=== PATIENT | female | born 1970 | race Caucasian/White ===

== ENCOUNTER 2023-02-15 21:40 | Inpatient (IN) ==
[2023-02-15] MEDS ORDERED: ONDANSETRON INJ 2 MG/ML 2 ML VIAL IV STA (21:54)
[2023-02-15] MEDS ORDERED: SODIUM CHLORIDE 0.9% 1000ML 500 ML IV SCH (22:00)
[2023-02-15] MEDS ORDERED: SODIUM CHLORIDE 0.9% 1000ML 1,000 ML IV SCH (22:00)
--- NOTE | 2023-02-15 22:19 | Emergency Department Note ---
History of Present Illness General Chief complaint: Hyperglycemia Stated complaint: VOMIT,HIGH BLOOD SUGAR,UNABLE TO EAT ANYTHING Time Seen by Provider: 02/15/23 21:45 History of Present Illness This 52-year-old female with type 1 diabetes and frontal lobe dementia presents to the ER with for high blood sugars has been vomiting all day. Patient is here visiting her son who is here for [employer]. They live in [place]. No history of DKA per patient or . states has been more confused today. Patient has been vomiting all day. Family denies chest pain, abdominal pain, diarrhea, urinary symptoms. Home Medications Medication Instructions Recorded Confirmed Type insulin lispro 100 unit/mL 0 sliding scale dose continuous 02/15/23 02/15/23 History subcutaneous solution (Humalog subcutaneous infusion DIRECTED U-100 Insulin) Allergies Allergy/AdvReac Type Severity Reaction Status Date / Time codeine Allergy Unknown Verified 02/15/23 23:39 Past Med/Surg History Medical History (Updated 02/16/23 @ 00:37 by SWETHA Howell) Diabetes mellitus type 1 Frontotemporal dementia Graves disease IUD (intrauterine device) in place Meningioma Tremor Surgical History (Updated 02/16/23 @ 00:28 by SWETHA Howell) History of cholecystectomy Social History Smoking Status: Never smoker Second Hand Exposure: No; Do You Dip or Chew Tobacco: No; Tobacco Cessation Education Requested by Patient: No Hx Alcohol Use: Yes Alcohol type: wine Hx Substance Use: No Preferred Language: Australian Communication Ability: Impaired Communication Ability Comment: hx frontal lobe dimentia Assistant Corporate Controller Required: No Beliefs That Will Affect Care: None Current Living Situation: Spouse Other Information That Helps Us Care for You: No Feels Safe at Home: Yes Safety Concerns: Feels Safe At This Time Assistive Devices: None Review of Systems A total of 10 systems reviewed and were otherwise negative Physical Exam Vital Signs Vital Signs - 24 hr 02/15/23 21:44 02/15/23 22:07 02/15/23 22:17 Temperature 36.6 C Temperature Source Temporal Artery Scan Pulse Rate 79 114 H 58 L Pulse Rate from SpO2 Sensor 115 H Pulse Rhythm Regular Respiratory Rate 18 17 17 Blood Pressure 110/71 Blood Pressure Mean 84 Pulse Oximetry 99 99 100 Oxygen Delivery Method Room Air Room Air Sepsis Recent Fever Within 48 Hours No Sepsis New/Unexplained Change in Mental Status No Sepsis Action Taken by Nursing No Action Required 02/15/23 22:23 02/15/23 22:20 02/15/23 22:30 Temperature Temperature Source Pulse Rate 114 H 117 H Pulse Rate from SpO2 Sensor Pulse Rhythm Respiratory Rate 13 Blood Pressure 135/72 Blood Pressure Mean 93 Pulse Oximetry Oxygen Delivery Method Sepsis Recent Fever Within 48 Hours Sepsis New/Unexplained Change in Mental Status Sepsis Action Taken by Nursing 02/15/23 22:30 02/15/23 22:40 02/15/23 22:50 Temperature Temperature Source Pulse Rate 116 H 121 H 118 H Pulse Rate from SpO2 Sensor Pulse Rhythm Respiratory Rate 19 18 22 Blood Pressure Blood Pressure Mean Pulse Oximetry Oxygen Delivery Method Sepsis Recent Fever Within 48 Hours Sepsis New/Unexplained Change in Mental Status Sepsis Action Taken by Nursing 02/15/23 23:00 02/15/23 23:17 02/15/23 23:20 Temperature Temperature Source Pulse Rate 124 H 121 H 124 H Pulse Rate from SpO2 Sensor Pulse Rhythm Respiratory Rate 18 22 21 Blood Pressure Blood Pressure Mean Pulse Oximetry Oxygen Delivery Method Sepsis Recent Fever Within 48 Hours Sepsis New/Unexplained Change in Mental Status Sepsis Action Taken by Nursing 02/15/23 23:30 02/15/23 23:30 Temperature Temperature Source Pulse Rate 126 H Pulse Rate from SpO2 Sensor 126 H Pulse Rhythm Respiratory Rate 20 Blood Pressure 131/71 Blood Pressure Mean 91 Pulse Oximetry 100 Oxygen Delivery Method Sepsis Recent Fever Within 48 Hours Sepsis New/Unexplained Change in Mental Status Sepsis Action Taken by Nursing VITALS: Vitals are noted on the nurse's note and reviewed by myself. Vital signs tachycardic. GENERAL: Pleasant female mildly confused with present to help give history, SKIN: The skin was without rashes, erythema, edema, or bruising. There is no tenting of the skin. Capillary reflex less than 2 seconds. HEAD: Normocephalic atraumatic. EARS: External auditory canals clear, tympanic membranes pearly tavarez without erythema or effusion bilaterally. EYES: Pupils equal round and reactive to light and accommodation. Conjunctivae without injection, sclerae without icterus. Extraocular movements intact. NOSE: Patent, turbinates without inflammation or discharge. No sinus tenderness. MOUTH: Mucous membranes dry. Pharynx without erythema or exudate. Uvula midline. Airway patent. Tongue does not deviate. NECK: Supple without nuchal rigidity. No lymphadenopathy. No thyromegaly. Cervical spine is nontender. No JVD. HEART: Mildly tachycardic rate and rhythm LUNGS: Clear to auscultation bilaterally without wheezes, rales or rhonchi. No retractions or accessory muscle use. ABDOMEN: Positive bowel sounds x 4. Normal tympanic percussion. Soft, nontender, without masses or organomegaly. Mtz sign negative. No guarding or rebound tenderness. No CVA tenderness MUSCULOSKELETAL: No muscle atrophy, erythema, or edema noted. NEURO: Patient was alert and oriented to person place. Normal sensation to light and sharp touch. No focal neurological deficits. Course Administered Medications Insulin Human Regular 250 (units/ Sodium Chloride) 250 mls @ 5.6 mls/hr IV .Q24H MILAD; Protocol Stop: 03/17/23 22:59 Last Titration: 02/16/23 02:25 Dose: 8 units/hr, 8 mls/hr Documented By: AMB Co-signed By: TG Titration: 02/16/23 01:42 Dose: 6.7 units/hr, 6.7 mls/hr Documented By: AMB Co-signed By: TP Titration: 02/16/23 00:22 Dose: 5.6 units/hr, 5.6 mls/hr Documented By: ANGELIA Co-signed By: BRIAN Admin: 02/15/23 23:25 Dose: 4.7 units/hr, 4.7 mls/hr Documented By: DLH Co-signed By: MED Parenteral Electrolytes (Normosol-R) 1,000 mls @ 115 mls/hr IV .Q8H42M MILAD Stop: 03/18/23 00:51 Last Admin: 02/16/23 01:45 Dose: 115 mls/hr Documented By: AMB Ceftriaxone Sodium 1,000 mg/ (Dextrose) 50 mls @ 100 mls/hr IV Q24H MILAD; Protocol Stop: 02/18/23 01:59 Last Admin: 02/16/23 02:43 Dose: 100 mls/hr Documented By: AMB Discontinued Medications Sodium Chloride (Nss 1000ml) 1,000 mls @ 999 mls/hr IV .Q1H1M MILAD Stop: 02/15/23 23:00 Last Infusion: 02/15/23 23:11 Dose: 0 mls/hr Documented By: Admin: 02/15/23 22:10 Dose: 999 mls/hr Documented By: ANGELIA Sodium Chloride (Nss 1000ml) 500 mls @ 999 mls/hr IV .Q31M MILAD Stop: 02/15/23 22:30 Last Infusion: 02/15/23 22:50 Dose: 0 mls/hr Documented By: Admin: 02/15/23 22:17 Dose: 999 mls/hr Documented By: ANGELIA Sodium Chloride (Nss 1000ml) 1,000 mls @ 999 mls/hr IV .Q1H1M ONE Stop: 02/15/23 23:37 Last Infusion: 02/16/23 00:10 Dose: 0 mls/hr Documented By: Admin: 02/15/23 23:07 Dose: 999 mls/hr Documented By: ANGELIA Piperacillin Sod/Tazobactam Sod (Zosyn) 4.5 gm in 120 mls @ 200 mls/hr IV NOW STA Stop: 02/15/23 23:08 Last Infusion: 02/15/23 23:39 Dose: 0 mls/hr Documented By: Admin: 02/15/23 23:01 Dose: 200 mls/hr Documented By: ANGELIA Parenteral Electrolytes (Normosol-R) 1,000 mls @ 75 mls/hr IV .[id number] MILAD Stop: 03/17/23 22:59 Last Admin: 02/16/23 00:21 Dose: 75 mls/hr Documented By: ANGELIA Insulin Human Regular (Novolin-R Insulin Per Unit Charge) 10 units IV NOW STA Stop: 02/15/23 22:57 Last Admin: 02/15/23 23:24 Dose: 10 units Documented By: ANGELIA Co-signed By: MED Ioversol (Optiray 350 100ml) 85 ml IV ONCE ONE Stop: 02/15/23 23:10 Last Admin: 02/15/23 23:11 Dose: 81 ml Documented By: RACHEL Misnleaneous (Stat Iv Infusion Titration Per Protocol) 1 each N/A NOW STA Stop: 02/15/23 22:57 Last Admin: 02/15/23 23:33 Dose: Not Given Documented By: ANGELIA Ondansetron HCl (Ondansetron Inj 2 Mg/Ml 2 Ml Vial) 4 mg IV NOW STA Stop: 02/15/23 21:55 Last Admin: 02/15/23 22:10 Dose: 4 mg Documented By: ANGELIA Critical Care Time Critical Care Time: Yes Total Critical Care Time: 65 I have personally spent 65 minutes of critical care time in the direct management of this patient. This includes bedside care, interpretation of diagnostic studies, and testing, discussion with consultants, patient, and family members, and other required patient management activities. This 65 minutes is in excess of all separately billable procedures. Medical Decision Making Medical Records Attestation: I reviewed the patient's medical records. Home Medications Current Medication List: was personally reviewed by me Laboratory Data Attestation: I reviewed the patient's lab results. 02/15/23 22:00 02/15/23 22:00 Lab Results 02/15/23 02/15/23 02/15/23 Range/Units 22:00 22:00 22:00 WBC 24.45 H (4.8-10.8) K/ul RBC 5.36 (4.20-5.40) M/uL Hgb 15.7 (12.0-16.0) g/dl POC Hgb (12.0-16.0) g/dl Hct 47.5 H (37.0-47.0) % POC Hct (37-47) % MCV 88.6 (80.0-100.0) fL MCH 29.3 (25.0-34.0) pg MCHC 33.1 (32.0-36.0) g/dL RDW Std Deviation 39.8 (36.4-46.3) fL RDW Coeff of Janine 12.3 (11.5-14.5) % Plt Count 527 H (130-400) K/uL MPV 10.2 (9.4-12.4) fL Immature Gran % (Auto) 1.2 % Neut % (Auto) 82.4 % Lymph % (Auto) 9.3 % [place] % (Auto) 6.6 % Eos % (Auto) 0.1 % Baso % (Auto) 0.4 % Neut # (Auto) 20.16 H (1.40-6.50) K/uL Lymph # (Auto) 2.27 (1.2-3.4) K/uL [place] # (Auto) 1.62 H (0.11-0.59) K/uL Eos # (Auto) 0.02 (0-0.50) K/uL Baso # (Auto) 0.09 (0-0.2) K/uL Immature Gran # (Auto) 0.29 H (0.01-0.20) K/uL Echinocytes 1+ PT (9.0-12.0) Seconds INR (0.9-1.1) APTT (21.0-31.0) Seconds PTT Ratio VBG pH (7.36-7.41) VBG pCO2 (38-50) mmHg VBG pO2 mmHg VBG HCO3 mmol/L VBG O2 Saturation % VBG Base Excess mEq/L POC Sodium (135-144) mmol/L Sodium 132 L (136-145) mmol/L POC Potassium (3.3-5.0) mmol/L Potassium 6.0 H (3.5-5.1) mmol/L POC Chloride (101-112) mmol/L Chloride 95 L (98-107) mmol/L Carbon Dioxide 10 L (21-32) mmol/L POC Total CO2 (24-31) mmol/L Anion Gap 27 H (3-11) POC Anion Gap (16-25) mmol/L POC BUN (7-18) mg/dl BUN 35 H (6-23) mg/dl Creatinine 1.45 H (0.6-1.2) mg/dl POC Creatinine (0.6-1.3) mg/dl Est Cr Clr Drug Dosing 33.6 ml/min Est GFR ( Amer) 47.9 ml/min Est GFR (Non-Af Amer) 41.3 ml/min BUN/Creatinine Ratio 24.1 H (10-20) Glucose 664 H* (70-99(Fasting)) mg/dl POC Glucose (other) (70-99) mg/dl Lactate 8.0 H* (0.4-2.0) mmol/L Calcium 10.5 H (8.6-10.3) mg/dl POC Ioniz Calcium Carlos (1.12-1.32) mmol/l Magnesium 2.6 H (1.7-2.4) mg/dl Total Bilirubin 0.7 (0.2-1.0) mg/dl Direct Bilirubin 0.2 (0-0.2) mg/dl AST 22 (13-39) U/L ALT 29 (7-52) U/L Alkaline Phosphatase 85 (34-104) U/L Troponin I High Sens 10.9 (0-14) pg/ml Total Protein 8.6 H (6.0-8.3) gm/dl Albumin 5.3 H (3.4-5.0) gm/dl Lipase 1147 H (11-82) U/L Procalcitonin (0-0.5) ng/ml TSH (0.300-4.500) uIu/ml HCG, Qual (Negative) Urine Color Urine Appearance (Clear) Urine pH (4.5-7.5) Ur Specific [place] (1.000-1.030) Urine Protein (Negative) Urine Glucose (UA) (Negative) Urine Ketones (Negative) Urine Blood (Negative) Urine Nitrite (Negative) Urine Bilirubin (Negative) Urine Urobilinogen (Negative) Ur Leukocyte Esterase (Negative) Urine WBC (Auto) (0-5) /hpf Urine RBC (Auto) (0-4) /hpf U Hyaline Cast (Auto) (0-5) /lpf U Epithel Cells (Auto) (0-5) /lpf Urine Bacteria (Auto) (Negative) Adenovirus (PCR) (NotDetected) B. pertussis DNA (PCR) (NotDetected) B.parapertussis DNA PCR (NotDetected) C. pneumoniae DNA (PCR) (NotDetected) Coronavirus OC43 (PCR) (NotDetected) Coronavirus HKU1 (PCR) (NotDetected) Coronavirus 229E (PCR) (NotDetected) SARS-CoV-2 (PCR) (NotDetected) Coronavirus NL63 (PCR) (NotDetected) Human Metapneumovir PCR (NotDetected) Influenza Type A (PCR) (NotDetected) Influenza Type B (PCR) (NotDetected) M. pneumoniae (PCR) (NotDetected) Parainfluenza 1 (PCR) (NotDetected) Parainfluenza 2 (PCR) (NotDetected) Parainfluenza 3 (PCR) (NotDetected) Parainfluenza 4 (PCR) (NotDetected) RSV (PCR) (NotDetected) Entero/Rhino (PCR) (NotDetected) 02/15/23 02/15/23 02/15/23 Range/Units 22:00 22:00 22:01 WBC (4.8-10.8) K/ul RBC (4.20-5.40) M/uL Hgb (12.0-16.0) g/dl POC Hgb (12.0-16.0) g/dl Hct (37.0-47.0) % POC Hct (37-47) % MCV (80.0-100.0) fL MCH (25.0-34.0) pg MCHC (32.0-36.0) g/dL RDW Std Deviation (36.4-46.3) fL RDW Coeff of Janine (11.5-14.5) % Plt Count (130-400) K/uL MPV (9.4-12.4) fL Immature Gran % (Auto) % Neut % (Auto) % Lymph % (Auto) % [place] % (Auto) % Eos % (Auto) % Baso % (Auto) % Neut # (Auto) (1.40-6.50) K/uL Lymph # (Auto) (1.2-3.4) K/uL [place] # (Auto) (0.11-0.59) K/uL Eos # (Auto) (0-0.50) K/uL Baso # (Auto) (0-0.2) K/uL Immature Gran # (Auto) (0.01-0.20) K/uL Echinocytes PT 11.0 (9.0-12.0) Seconds INR 1.0 (0.9-1.1) APTT 23.6 (21.0-31.0) Seconds PTT Ratio 0.9 VBG pH (7.36-7.41) VBG pCO2 (38-50) mmHg VBG pO2 mmHg VBG HCO3 mmol/L VBG O2 Saturation % VBG Base Excess mEq/L POC Sodium (135-144) mmol/L Sodium (136-145) mmol/L POC Potassium (3.3-5.0) mmol/L Potassium (3.5-5.1) mmol/L POC Chloride (101-112) mmol/L Chloride (98-107) mmol/L Carbon Dioxide (21-32) mmol/L POC Total CO2 (24-31) mmol/L Anion Gap (3-11) POC Anion Gap (16-25) mmol/L POC BUN (7-18) mg/dl BUN (6-23) mg/dl Creatinine (0.6-1.2) mg/dl POC Creatinine (0.6-1.3) mg/dl Est Cr Clr Drug Dosing ml/min Est GFR ( Amer) ml/min Est GFR (Non-Af Amer) ml/min BUN/Creatinine Ratio (10-20) Glucose (70-99(Fasting)) mg/dl POC Glucose (other) (70-99) mg/dl Lactate (0.4-2.0) mmol/L Calcium (8.6-10.3) mg/dl POC Ioniz Calcium Carlos (1.12-1.32) mmol/l Magnesium (1.7-2.4) mg/dl Total Bilirubin (0.2-1.0) mg/dl Direct Bilirubin (0-0.2) mg/dl AST (13-39) U/L ALT (7-52) U/L Alkaline Phosphatase (34-104) U/L Troponin I High Sens (0-14) pg/ml Total Protein (6.0-8.3) gm/dl Albumin (3.4-5.0) gm/dl Lipase (11-82) U/L Procalcitonin 0.98 H (0-0.5) ng/ml TSH 0.573 (0.300-4.500) uIu/ml HCG, Qual (Negative) Urine Color Urine Appearance (Clear) Urine pH (4.5-7.5) Ur Specific [place] (1.000-1.030) Urine Protein (Negative) Urine Glucose (UA) (Negative) Urine Ketones (Negative) Urine Blood (Negative) Urine Nitrite (Negative) Urine Bilirubin (Negative) Urine Urobilinogen (Negative) Ur Leukocyte Esterase (Negative) Urine WBC (Auto) (0-5) /hpf Urine RBC (Auto) (0-4) /hpf U Hyaline Cast (Auto) (0-5) /lpf U Epithel Cells (Auto) (0-5) /lpf Urine Bacteria (Auto) (Negative) Adenovirus (PCR) (NotDetected) B. pertussis DNA (PCR) (NotDetected) B.parapertussis DNA PCR (NotDetected) C. pneumoniae DNA (PCR) (NotDetected) Coronavirus OC43 (PCR) (NotDetected) Coronavirus HKU1 (PCR) (NotDetected) Coronavirus 229E (PCR) (NotDetected) SARS-CoV-2 (PCR) (NotDetected) Coronavirus NL63 (PCR) (NotDetected) Human Metapneumovir PCR (NotDetected) Influenza Type A (PCR) (NotDetected) Influenza Type B (PCR) (NotDetected) M. pneumoniae (PCR) (NotDetected) Parainfluenza 1 (PCR) (NotDetected) Parainfluenza 2 (PCR) (NotDetected) Parainfluenza 3 (PCR) (NotDetected) Parainfluenza 4 (PCR) (NotDetected) RSV (PCR) (NotDetected) Entero/Rhino (PCR) (NotDetected) 02/15/23 02/15/23 02/15/23 Range/Units 22:01 22:13 22:44 WBC (4.8-10.8) K/ul RBC (4.20-5.40) M/uL Hgb (12.0-16.0) g/dl POC Hgb (12.0-16.0) g/dl Hct (37.0-47.0) % POC Hct (37-47) % MCV (80.0-100.0) fL MCH (25.0-34.0) pg MCHC (32.0-36.0) g/dL RDW Std Deviation (36.4-46.3) fL RDW Coeff of Janine (11.5-14.5) % Plt Count (130-400) K/uL MPV (9.4-12.4) fL Immature Gran % (Auto) % Neut % (Auto) % Lymph % (Auto) % [place] % (Auto) % Eos % (Auto) % Baso % (Auto) % Neut # (Auto) (1.40-6.50) K/uL Lymph # (Auto) (1.2-3.4) K/uL [place] # (Auto) (0.11-0.59) K/uL Eos # (Auto) (0-0.50) K/uL Baso # (Auto) (0-0.2) K/uL Immature Gran # (Auto) (0.01-0.20) K/uL Echinocytes PT (9.0-12.0) Seconds INR (0.9-1.1) APTT (21.0-31.0) Seconds PTT Ratio VBG pH 7.03 L (7.36-7.41) VBG pCO2 36 L (38-50) mmHg VBG pO2 49 mmHg VBG HCO3 10 mmol/L VBG O2 Saturation 78.8 % VBG Base Excess -20.5 mEq/L POC Sodium (135-144) mmol/L Sodium (136-145) mmol/L POC Potassium (3.3-5.0) mmol/L Potassium (3.5-5.1) mmol/L POC Chloride (101-112) mmol/L Chloride (98-107) mmol/L Carbon Dioxide (21-32) mmol/L POC Total CO2 (24-31) mmol/L Anion Gap (3-11) POC Anion Gap (16-25) mmol/L POC BUN (7-18) mg/dl BUN (6-23) mg/dl Creatinine (0.6-1.2) mg/dl POC Creatinine (0.6-1.3) mg/dl Est Cr Clr Drug Dosing ml/min Est GFR ( Amer) ml/min Est GFR (Non-Af Amer) ml/min BUN/Creatinine Ratio (10-20) Glucose (70-99(Fasting)) mg/dl POC Glucose (other) (70-99) mg/dl Lactate (0.4-2.0) mmol/L Calcium (8.6-10.3) mg/dl POC Ioniz Calcium Carlos (1.12-1.32) mmol/l Magnesium (1.7-2.4) mg/dl Total Bilirubin (0.2-1.0) mg/dl Direct Bilirubin (0-0.2) mg/dl AST (13-39) U/L ALT (7-52) U/L Alkaline Phosphatase (34-104) U/L Troponin I High Sens (0-14) pg/ml Total Protein (6.0-8.3) gm/dl Albumin (3.4-5.0) gm/dl Lipase (11-82) U/L Procalcitonin (0-0.5) ng/ml TSH (0.300-4.500) uIu/ml HCG, Qual Negative (Negative) Urine Color Urine Appearance (Clear) Urine pH (4.5-7.5) Ur Specific [place] (1.000-1.030) Urine Protein (Negative) Urine Glucose (UA) (Negative) Urine Ketones (Negative) Urine Blood (Negative) Urine Nitrite (Negative) Urine Bilirubin (Negative) Urine Urobilinogen (Negative) Ur Leukocyte Esterase (Negative) Urine WBC (Auto) (0-5) /hpf Urine RBC (Auto) (0-4) /hpf U Hyaline Cast (Auto) (0-5) /lpf U Epithel Cells (Auto) (0-5) /lpf Urine Bacteria (Auto) (Negative) Adenovirus (PCR) Not Detected (NotDetected) B. pertussis DNA (PCR) Not Detected (NotDetected) B.parapertussis DNA PCR Not Detected (NotDetected) C. pneumoniae DNA (PCR) Not Detected (NotDetected) Coronavirus OC43 (PCR) Not Detected (NotDetected) Coronavirus HKU1 (PCR) Not Detected (NotDetected) Coronavirus 229E (PCR) Not Detected (NotDetected) SARS-CoV-2 (PCR) Not Detected (NotDetected) Coronavirus NL63 (PCR) Not Detected (NotDetected) Human Metapneumovir PCR Not Detected (NotDetected) Influenza Type A (PCR) Not Detected (NotDetected) Influenza Type B (PCR) Not Detected (NotDetected) M. pneumoniae (PCR) Not Detected (NotDetected) Parainfluenza 1 (PCR) Not Detected (NotDetected) Parainfluenza 2 (PCR) Not Detected (NotDetected) Parainfluenza 3 (PCR) Not Detected (NotDetected) Parainfluenza 4 (PCR) Not Detected (NotDetected) RSV (PCR) Not Detected (NotDetected) Entero/Rhino (PCR) Not Detected (NotDetected) 02/15/23 02/15/23 Range/Units 22:49 23:03 WBC (4.8-10.8) K/ul RBC (4.20-5.40) M/uL Hgb (12.0-16.0) g/dl POC Hgb 16.0 (12.0-16.0) g/dl Hct (37.0-47.0) % POC Hct 47 (37-47) % MCV (80.0-100.0) fL MCH (25.0-34.0) pg MCHC (32.0-36.0) g/dL RDW Std Deviation (36.4-46.3) fL RDW Coeff of Janine (11.5-14.5) % Plt Count (130-400) K/uL MPV (9.4-12.4) fL Immature Gran % (Auto) % Neut % (Auto) % Lymph % (Auto) % [place] % (Auto) % Eos % (Auto) % Baso % (Auto) % Neut # (Auto) (1.40-6.50) K/uL Lymph # (Auto) (1.2-3.4) K/uL [place] # (Auto) (0.11-0.59) K/uL Eos # (Auto) (0-0.50) K/uL Baso # (Auto) (0-0.2) K/uL Immature Gran # (Auto) (0.01-0.20) K/uL Echinocytes PT (9.0-12.0) Seconds INR (0.9-1.1) APTT (21.0-31.0) Seconds PTT Ratio VBG pH (7.36-7.41) VBG pCO2 (38-50) mmHg VBG pO2 mmHg VBG HCO3 mmol/L VBG O2 Saturation % VBG Base Excess mEq/L POC Sodium 134 L (135-144) mmol/L Sodium (136-145) mmol/L POC Potassium 6.0 H (3.3-5.0) mmol/L Potassium (3.5-5.1) mmol/L POC Chloride 107 (101-112) mmol/L Chloride (98-107) mmol/L Carbon Dioxide (21-32) mmol/L POC Total CO2 11 L (24-31) mmol/L Anion Gap (3-11) POC Anion Gap 23.0 (16-25) mmol/L POC BUN 34 H (7-18) mg/dl BUN (6-23) mg/dl Creatinine (0.6-1.2) mg/dl POC Creatinine 1.1 (0.6-1.3) mg/dl Est Cr Clr Drug Dosing ml/min Est GFR ( Amer) ml/min Est GFR (Non-Af Amer) ml/min BUN/Creatinine Ratio (10-20) Glucose (70-99(Fasting)) mg/dl POC Glucose (other) 657 H* (70-99) mg/dl Lactate (0.4-2.0) mmol/L Calcium (8.6-10.3) mg/dl POC Ioniz Calcium Carlos 1.17 (1.12-1.32) mmol/l Magnesium (1.7-2.4) mg/dl Total Bilirubin (0.2-1.0) mg/dl Direct Bilirubin (0-0.2) mg/dl AST (13-39) U/L ALT (7-52) U/L Alkaline Phosphatase (34-104) U/L Troponin I High Sens (0-14) pg/ml Total Protein (6.0-8.3) gm/dl Albumin (3.4-5.0) gm/dl Lipase (11-82) U/L Procalcitonin (0-0.5) ng/ml TSH (0.300-4.500) uIu/ml HCG, Qual (Negative) Urine Color Yellow Urine Appearance Clear (Clear) Urine pH 5.0 (4.5-7.5) Ur Specific [place] 1.022 (1.000-1.030) Urine Protein Negative (Negative) Urine Glucose (UA) 3+ H (Negative) Urine Ketones 3+ H (Negative) Urine Blood Trace H (Negative) Urine Nitrite Negative (Negative) Urine Bilirubin Negative (Negative) Urine Urobilinogen Negative (Negative) Ur Leukocyte Esterase Negative (Negative) Urine WBC (Auto) 1-5 (0-5) /hpf Urine RBC (Auto) 0-4 (0-4) /hpf U Hyaline Cast (Auto) 0 (0-5) /lpf U Epithel Cells (Auto) >30 H (0-5) /lpf Urine Bacteria (Auto) Negative (Negative) Adenovirus (PCR) (NotDetected) B. pertussis DNA (PCR) (NotDetected) B.parapertussis DNA PCR (NotDetected) C. pneumoniae DNA (PCR) (NotDetected) Coronavirus OC43 (PCR) (NotDetected) Coronavirus HKU1 (PCR) (NotDetected) Coronavirus 229E (PCR) (NotDetected) SARS-CoV-2 (PCR) (NotDetected) Coronavirus NL63 (PCR) (NotDetected) Human Metapneumovir PCR (NotDetected) Influenza Type A (PCR) (NotDetected) Influenza Type B (PCR) (NotDetected) M. pneumoniae (PCR) (NotDetected) Parainfluenza 1 (PCR) (NotDetected) Parainfluenza 2 (PCR) (NotDetected) Parainfluenza 3 (PCR) (NotDetected) Parainfluenza 4 (PCR) (NotDetected) RSV (PCR) (NotDetected) Entero/Rhino (PCR) (NotDetected) Imaging Data Attestation: I personally reviewed and interpreted this imaging study as follows: Radiologist's Impression: Abdomen/Pelvis CT 02/15/23 21:54 Exam(s): CT ABDOMEN + PELVIS With Contrast IV EXAM: CT Abdomen and Pelvis With Intravenous Contrast CLINICAL HISTORY: Reason for exam: ams, n/v. TECHNIQUE: Axial computed tomography images of the abdomen and pelvis with intravenous contrast. CTDI is 38.02 mGy and DLP is 614.27 mGy-cm. Automated exposure control was utilized for the study. A dose lowering technique was utilized adhering to the principles of ALARA. CONTRAST: Patient received of IV contrast COMPARISON: No relevant prior studies available. FINDINGS: Lung bases: Unremarkable. No mass. No consolidation. ABDOMEN: Liver: Unremarkable. No mass. Gallbladder and bile ducts: Status post cholecystectomy. No ductal dilation. Pancreas: Unremarkable. No mass. No ductal dilation. Spleen: Unremarkable. No splenomegaly. Adrenals: Unremarkable. No mass. Kidneys and ureters: Unremarkable. No solid mass. No hydronephrosis. Stomach and bowel: Unremarkable. No obstruction. No mucosal thickening. PELVIS: Appendix: No findings to suggest acute appendicitis. Bladder: Significant distention of the urinary bladder. Reproductive: IUD in place. ABDOMEN and PELVIS: Intraperitoneal space: Unremarkable. No free air. No significant fluid collection. Bones/joints: No acute fracture. No dislocation. Soft tissues: Unremarkable. Vasculature: Unremarkable. No abdominal aortic aneurysm. Lymph nodes: Unremarkable. No enlarged lymph nodes. IMPRESSION: No acute findings in the abdomen or pelvis. Electronically signed by: Gio Novak MD 02/15/23 23:[address] 02/15/23 21:54 Exam(s): CT HEAD Without Contrast EXAM: CT Head Without Intravenous Contrast CLINICAL HISTORY: Reason for exam: ams, hx dementia. TECHNIQUE: Axial computed tomography images of the head/brain without intravenous contrast. CTDI is 38.02 mGy and DLP is 614.27 mGy-cm. Automated exposure control was utilized for the study. A dose lowering technique was utilized adhering to the principles of ALARA. COMPARISON: No relevant prior studies available. FINDINGS: Brain: Ossified focus adjacent to the left frontal lobe with underlying osseous remodeling (image 13 series 3), findings most likely reflect a meningioma. No hemorrhage. No significant white matter disease. Ventricles: Unremarkable. No ventriculomegaly. Bones/joints: Unremarkable. No acute fracture. Soft tissues: Unremarkable. Sinuses: Unremarkable as visualized. No acute sinusitis. Mastoid air cells: Unremarkable as visualized. No mastoid effusion. IMPRESSION: No acute intracranial pathology. Electronically signed by: Gio Novak MD 02/15/23 23:42 PM MDM Narrative Prior records/ancillary studies reviewed and summarized above. Nursing notes reviewed. Additional history obtained from family. The patient's history was concerning for elevated blood sugar and a type I diabetic that is vomiting. Differential diagnosis: Etiologies such as DKA, metabolic, infection, hypo/hyperglycemia, electrolyte abnormalities, cardiac sources, intracerebral event, toxicologic, neurologic, as well as others were entertained. Physical examination: As above. ER treatment provided: IV Lock An order was placed for continuous cardiac monitoring. The monitor shows a rate of 60-1 50 with a sinus rhythm per my interpretation. IV fluids and Zofran were ordered Zosyn was ordered for possible sepsis Insulin with bolus and drip were ordered for severe DKA On reassessment the patient felt better. Diagnostics interpretation by me: ECG: Ordered for weakness EKG: Normal sinus, normal intervals, poor baseline, rate of 113. Impression sinus tachycardia poor baseline with ST depression in the lateral leads interpreted by myself The labs Independently Interpreted by myself revealed leukocytosis, hyperglycemia with DKA Blood cultures pending, elevated lactic and procalcitonin Imaging studies: Chest x-ray with no acute consolidation, pneumothorax or free air per my independent interpretation CTs of the abdomen pelvis and head were negative for acute findings per my independent interpretation and read by radiology that was reviewed Consultation: A consultation was placed with the hospitalist. The case was discussed and diagnostics were reviewed. The patient was evaluated in the ER for further treatment. I consulted the pharmacist and the case was discussed. Insulin drip was initiated Exam and history seem consistent with severe DKA. 2 lines were immediately initiated. I-STAT was ordered. VBG was ordered and patient was given IV fluids Zofran and Zosyn insulin with drip. She was reassessed multiple times. Labs and diagnostics reviewed and independently interpreted by myself elf. Negative imaging. Negative urine. Patient and family agreed with treatment plan admission. Patient was admitted to the unit. By the evaluation outlined above emergent etiologies such as cardiac sources, intracerebral event, toxologic, neurologic, as well as others were deemed relatively unlikely. The pt/family informed about the findings as listed above. All questions were answered and pleased with the treatment. The chart was completed utilizing [employer] Speech voice recognition software. Grammatical errors, random word insertions, pronoun errors, and incomplete sentences are an occassional consequence of this system due to software limitations, ambient noise, and hardware issues. Any formal questions or conc erns about the content, text, or information contained within the body of this dictation should be directly addressed to the physician marketing assistant manager for clarification. Impression & Plan DKA (diabetic ketoacidosis) Discharge Plan Visit Data Chief Complaint: Hyperglycemia Stated Complaint: VOMIT,HIGH BLOOD SUGAR,UNABLE TO EAT ANYTHING ED Provider: Brad Ji ED Midlevel Provider: Kayy Novak Discharge Problem: DKA (diabetic ketoacidosis) Patient Disposition: Admitted As Inpatient Condition: Fair Discharge Instructions Interventions: ED Discharge Assessment Last Done: 02/16/23 00:15
[2023-02-15 22:21] LABS: Hematocrit (blood only) 47.5 % (37.0-47.0); Hemoglobin 15.7 g/dl (12.0-16.0); Mean Corpuscular Hemoglobin 29.3 pg (25.0-34.0); Mean Corpuscular Hgb Conc 33.1 g/dL (32.0-36.0); Mean Corpuscular Volume 88.6 fL (80.0-100.0); Mean Platelet Volume 10.2 fL (9.4-12.4); Platelet Count 527 K/uL (130-400); RDW Coefficient of Variation 12.3 % (11.5-14.5); RDW Standard Deviation 39.8 fL (36.4-46.3); Red Blood Count 5.36 M/uL (4.20-5.40); White Blood Count 24.45 K/ul (4.8-10.8)
[2023-02-15] MEDS ORDERED: PIPERACILLIN/TAZOBACTAM 4.5 GM/120 ML BAG IV STA (22:33)
[2023-02-15] MEDS ORDERED: PIPERACILLIN/TAZOBACTAM 4.5 GM in DEXTROSE 5% 100 ML IV ONE (22:33)
[2023-02-15] MEDS ORDERED: SODIUM CHLORIDE 0.9% 1000ML 1,000 ML IV ONE (22:37)
[2023-02-15 22:38] LABS: Basophils # (auto) 0.09 K/uL (0-0.2); Basophils % (auto) 0.4 %; Echinocytes 1+; Eosinophils # (auto) 0.02 K/uL (0-0.50); Eosinophils % (auto) 0.1 %; Immature Granulocytes # (auto) 0.29 K/uL (0.01-0.20); Immature Granulocytes % (auto) 1.2 %; Lymphocytes # (auto) 2.27 K/uL (1.2-3.4); Lymphocytes % (auto) 9.3 %; Monocytes # (auto) 1.62 K/uL (0.11-0.59); Monocytes % (auto) 6.6 %; Neutrophils # (auto) 20.16 K/uL (1.40-6.50); Neutrophils % (auto) 82.4 %
[2023-02-15 22:49] LABS: Pregnancy Test, Serum Negative (Negative)
[2023-02-15 22:50] LABS: Partial Thromboplastin Ratio 0.9; Partial Thromboplastin Time 23.6 Seconds (21.0-31.0)
[2023-02-15 22:52] LABS: Base Excess VBG -20.5 mEq/L; HCO3 VBG 10 mmol/L; Oxygen Saturation VBG 78.8 %; PCO2 VBG 36 mmHg (38-50); PO2 VBG 49 mmHg; pH VBG 7.03 (7.36-7.41)
[2023-02-15 22:52] LABS: Albumin Level 5.3 gm/dl (3.4-5.0); BUN Creatinine Ratio 24.1 (10-20); Bilirubin Direct 0.2 mg/dl (0-0.2); Bilirubin,Total 0.7 mg/dl (0.2-1.0); Calcium 10.5 mg/dl (8.6-10.3); Creatinine Clr Calc Pharmacy 33.6 ml/min; Est GFR (African American) 47.9 ml/min; Est GFR (Non-African American) 41.3 ml/min; Magnesium 2.6 mg/dl (1.7-2.4); Total Protein 8.6 gm/dl (6.0-8.3); Troponin I High Sensitivity 10.9 pg/ml (0-14)
[2023-02-15] MEDS ORDERED: DEXTROSE 50% 50 ML SYRINGE IV PRN (22:56)
[2023-02-15] MEDS ORDERED: GLUCOSE 40% GEL 15 GM TUBE PO PRN (22:56)
[2023-02-15] MEDS ORDERED: GLUCOSE 10 TAB/TUBE PO PRN (22:56)
[2023-02-15] MEDS ORDERED: PHARMACY GLYCEMIC MGMT CONSULT PRN (22:56)
[2023-02-15] MEDS ORDERED: CARBOHYDRATES FOR HYPOGLYCEMIA PO PRN (22:56)
[2023-02-15] MEDS ORDERED: GLUCAGON FOR INJ 1 MG VIAL SQ PRN (22:56)
[2023-02-15] MEDS ORDERED: STAT IV Infusion **Titration per Protocol STA (22:56)
[2023-02-15] MEDS ORDERED: NovoLIN-R INSULIN PER UNIT CHARGE IV STA (22:56)
[2023-02-15] MEDS ORDERED: INSULIN REGULAR 250 UNITS in SODIUM CHLORIDE 0.9% 247.5 ML IV SCH (23:00)
[2023-02-15] MEDS ORDERED: PLASMA-LYTE A 1,000 ML IV SCH (23:00)
[2023-02-15] MEDS ORDERED: OPTIRAY 350 100ml IV ONE (23:09)
[2023-02-15 23:12] LABS: Appearance Urine Clear (Clear); Bacteria Urine Automated Negative (Negative); Bilirubin Urine Negative (Negative); Blood Urine Trace (Negative); Cast Urine Automated 0 /lpf (0-5); Color Urine Yellow; Epithelial Cell Urine Auto >30 /lpf (0-5); Glucose Urine UA 3+ (Negative); Ketones Urine 3+ (Negative); Leukocyte Esterase Urine Negative (Negative); Nitrite Urine Negative (Negative); Protein Urine Negative (Negative); RBC Urine Automated 0-4 /hpf (0-4); Specific Gravity Urine 1.022 (1.000-1.030); Urobilinogen Urine Negative (Negative)
[2023-02-15 23:17] LABS: iSTAT Creatinine 1.1 mg/dl (0.6-1.3); iSTAT Ionized Calcium 1.17 mmol/l (1.12-1.32)
[2023-02-15 23:30] LABS: Adenovirus PCR Not Detected (NotDetected); Bordetella parapertussis PCR Not Detected (NotDetected); Bordetella pertussis PCR Not Detected (NotDetected); Chlamydia pneumoniae PCR Not Detected (NotDetected); Coronavirus 229E PCR Not Detected (NotDetected); Coronavirus CoV-2 (COVID19)PCR Not Detected (NotDetected); Coronavirus HKU1 PCR Not Detected (NotDetected); Coronavirus NL63 PCR Not Detected (NotDetected); Coronavirus OC43PCR Not Detected (NotDetected); Human Metapneumovirus PCR Not Detected (NotDetected); Influenza A PCR Not Detected (NotDetected); Influenza B PCR Not Detected (NotDetected); Mycoplasma pneumoniae PCR Not Detected (NotDetected); Parainfluenza Virus 1 PCR Not Detected (NotDetected); Parainfluenza Virus 2 PCR Not Detected (NotDetected); Parainfluenza Virus 3 PCR Not Detected (NotDetected); Parainfluenza Virus 4 PCR Not Detected (NotDetected); Respiratory Syncytial VirusPCR Not Detected (NotDetected); Rhinovirus/Enterovirus PCR Not Detected (NotDetected)
--- NOTE | 2023-02-15 23:38 | History & Physical Report ---
Date of Service February 15, 2023 Assessment & Plan (1) DKA (diabetic ketoacidosis): Plan: 52yo Female with PMH DM1 and newly diagnosed frontotemporal dementia here for DKA. ()Diabetic Ketoacidosis -BSG elevated since yesterday per monitor, ongoing tremors polydipsia nausea -patient using insulin pods, current one expires today, change every 2 days -on admit BSG 664 lactate 8 VBG pH 7.03 -Creat 1.45 potassium 6 bicarb 10 -received 2.5L NSS in ED, 10U insulin -received zosyn 1 dose in ED -CT A/P no acute findings -ICU consulted, patient admitted to ICU -started insulin drip -hold on bicarb drip at this time -started on normosol R 75mls/hr -ABG ordered, lipase ordered -BMP Mg VBG phos q4 -BSG q1 ()Hyperkalemia -in ED received 2.5L NSS, 10U insulin -started on normosol 75mls/h -started on insulin drip -continue to monitor ()Hypermagnesia -Mg 2.6 -continue fluids ()Hyponatremia -Na 132 -continue fluids, insulin ()MARION -Creat 1.45, BUN 34 -continue fluids ()Tachycardia -2/2 DKA -continue to monitor ()Leukocytosis -WBC elevated 24.45, procal 0.98, no fever noted -received 1 dose zosyn in ED -Bcx pending -continue to monitor ()Frontotemporal dementia -newly diagnosed -noted word finding difficulties -difficulty coordinating limbs on right side, difficulty moving gaze to the right -meningioma present on left frontal area per CT FENa: NPO Code Status: Full DVT PPX: heparin Dispo: ICU Shelbi Watson D.O. PGY 2, FCM (2) Diabetes mellitus type 1: (3) Frontotemporal dementia: (4) Meningioma: (5) Tremor: (6) Hyperglycemia: History of Present Illness Chief Complaint: DKA Primary Care Provider: Jane Urbano 52yo Female with PMH DM1 and newly diagnosed frontotemporal dementia here for DKA. Here today with . Per patient she was not feeling well yesterday, today she was feeling sick nauseous vomitting drinking lots of water even when she's not supposed to, however she was looking forward to visiting her son today at [facility], they live in [place]. Per she was vomitting in the drive over from [place] noted high BSG on monitor since this morning without number value, they tried administering boluses on insulin at home without benefit, they tried resting for a bit and had dinner, however she continued to feel unwell so they came to the hospital. Per she was recently diagnosed with frontotemporal dementia, was not started on any medication yet, does not have any other medical conditions or chronic medications. Insulin pump located on RLQ abd, uses insulin pods current one expires today. Glucose monitor located on left hip/thigh. Upon admission patient's blood glucose was 664, lactate 8, VBG pH 7.03. Patient received 2.5L NSS and 10U insulin, given one dose zosyn. CT head shows possible meningioma on left frontal lobe. CT A/P shows no acute findings. Case discussed with ICU, patient to be admitted to ICU Allergies Allergy/AdvReac Type Severity Reaction Status Date / Time codeine Allergy Unknown Verified 02/15/23 23:39 Home Medications Medication Instructions Recorded Confirmed Type insulin lispro 100 unit/mL 0 sliding scale dose continuous 02/15/23 02/15/23 History subcutaneous solution (Humalog subcutaneous infusion DIRECTED U-100 Insulin) cefdinir 300 mg capsule 300 mg PO BID 5 days #10 caps 02/16/23 Rx Past Med/Surg History Medical History (Updated 02/16/23 @ 00:37 by SWETHA Howell) Diabetes mellitus type 1 Frontotemporal dementia Graves disease IUD (intrauterine device) in place Meningioma Tremor Surgical History (Updated 02/16/23 @ 00:28 by SWETHA Howell) History of cholecystectomy Social History Smoking Status: Never smoker Second Hand Exposure: No; Hx Alcohol Use: Yes Alcohol type: wine Hx Substance Use: No Preferred Language: Syriac Communication Ability: Impaired Communication Ability Comment: hx frontal lobe dimentia Crib Pad Maker Required: No Beliefs That Will Affect Care: None Current Living Situation: Spouse Feels Safe at Home: Yes Assistive Devices: None Review of Systems Review of Systems: All systems reviewed & are unremarkable except as noted in HPI & below Physical Exam Constitutional: + thin, cooperative and comfortable Eyes: PERRL, conjunctivae normal, anicteric sclerae ENMT: external ear and nose normal, oropharynx normal Neck: trachea midline, no thyromegaly Respiratory: normal respiratory effort, lungs clear to auscultation Cardiovascular: Rate/Rhythm: regular rhythm and + tachycardic Extremities: no edema Gastrointestinal (Abdomen): Inspection/Auscultation: abdomen normal to inspection (insulin pump on RLQ, BSG monitor on left thigh) Percussion/Palpation: abdomen soft; abdomen nontender Skin: no rashes, warm and dry Neurologic: CN's II-XI intact bilaterally (though required multiple prompting to look to the right), moves all extremities and awake Speech / Cognition: + expressive aphasia Motor/Sensory: + tremor Results & Data Results & Data Vital Signs (Past 12 Hours) Vital Signs Temp Pulse Resp BP Pulse Ox O2 Del Method 02/15/23 23:30 126 H 20 100 02/15/23 23:30 131/71 02/15/23 23:20 124 H 21 02/15/23 23:17 121 H 22 02/15/23 23:00 124 H 18 02/15/23 22:50 118 H 22 02/15/23 22:40 121 H 18 02/15/23 22:30 116 H 19 02/15/23 22:30 135/72 02/15/23 22:20 117 H 13 02/15/23 22:23 114 H 02/15/23 22:17 58 L 17 100 02/15/23 22:07 114 H 17 99 Room Air 02/15/23 21:44 36.6 C 79 18 110/71 99 Room Air Critical Care Time 40 minutes Supervising Physician Co-Signing Physician Notes Attending addendum: I have physically seen this patient, have supervised the medical residents activities, and agree with the H&P unless as otherwise noted. Assessment and Plan: DKA- VBG with pH 7.03, chemistry with bicarb of 10 and anion gap of 27. Glucose 664 Patient will be started on insulin drip per protocol Received 2.5 L normal saline in ED along with 10 units of insulin IV Admit with DKA protocol to the ICU Bicarb drip Every 4 hours BMP, magnesium, phosphorus and VBG BSG every hour Follow urine cultures and blood cultures Hyperkalemia/acute kidney injury- Potassium 6.0 with creatinine 1.45 Should improve with administration of regular insulin IV and IV fluids Follow serially as noted above Remaining orders and notations as noted Resident Activity Tracking Resident Involvement: Resident Care Provided Care Provided: Adult [facility]
--- NOTE | 2023-02-15 23:43 | CT Scan Report ---
Exam(s): CT HEAD Without Contrast EXAM: CT Head Without Intravenous Contrast CLINICAL HISTORY: Reason for exam: ams, hx dementia. TECHNIQUE: Axial computed tomography images of the head/brain without intravenous contrast. CTDI is 38.02 mGy and DLP is 614.27 mGy-cm. Automated exposure control was utilized for the study. A dose lowering technique was utilized adhering to the principles of ALARA. COMPARISON: No relevant prior studies available. FINDINGS: Brain: Ossified focus adjacent to the left frontal lobe with underlying osseous remodeling (image 13 series 3), findings most likely reflect a meningioma. No hemorrhage. No significant white matter disease. Ventricles: Unremarkable. No ventriculomegaly. Bones/joints: Unremarkable. No acute fracture. Soft tissues: Unremarkable. Sinuses: Unremarkable as visualized. No acute sinusitis. Mastoid air cells: Unremarkable as visualized. No mastoid effusion. IMPRESSION: No acute intracranial pathology. Electronically signed by: Gio Novak MD 02/15/23 23:42 PM
--- NOTE | 2023-02-15 23:45 | CT Scan Report ---
Exam(s): CT ABDOMEN + PELVIS With Contrast IV EXAM: CT Abdomen and Pelvis With Intravenous Contrast CLINICAL HISTORY: Reason for exam: ams, n/v. TECHNIQUE: Axial computed tomography images of the abdomen and pelvis with intravenous contrast. CTDI is 38.02 mGy and DLP is 614.27 mGy-cm. Automated exposure control was utilized for the study. A dose lowering technique was utilized adhering to the principles of ALARA. CONTRAST: Patient received of IV contrast COMPARISON: No relevant prior studies available. FINDINGS: Lung bases: Unremarkable. No mass. No consolidation. ABDOMEN: Liver: Unremarkable. No mass. Gallbladder and bile ducts: Status post cholecystectomy. No ductal dilation. Pancreas: Unremarkable. No mass. No ductal dilation. Spleen: Unremarkable. No splenomegaly. Adrenals: Unremarkable. No mass. Kidneys and ureters: Unremarkable. No solid mass. No hydronephrosis. Stomach and bowel: Unremarkable. No obstruction. No mucosal thickening. PELVIS: Appendix: No findings to suggest acute appendicitis. Bladder: Significant distention of the urinary bladder. Reproductive: IUD in place. ABDOMEN and PELVIS: Intraperitoneal space: Unremarkable. No free air. No significant fluid collection. Bones/joints: No acute fracture. No dislocation. Soft tissues: Unremarkable. Vasculature: Unremarkable. No abdominal aortic aneurysm. Lymph nodes: Unremarkable. No enlarged lymph nodes. IMPRESSION: No acute findings in the abdomen or pelvis. Electronically signed by: Gio Novak MD 02/15/23 23:43 PM
--- NOTE | 2023-02-16 00:16 | Critical Care Consultation ---
Date of Consultation February 16, 2023 Assessment & Plan (1) Leukocytosis: (2) DKA (diabetic ketoacidosis): (3) Meningioma: (4) Frontotemporal dementia: (5) Electrolyte abnormality: (6) Metabolic acidosis: (7) SIRS (systemic inflammatory response syndrome): Plan Reason Critically Ill: 52 YOF with DM I history with DEXCOM POD, presents with 1 day history of nasuea vomitting and elevated glucose levels. Consistent with DKA. To ICU for monitoring of acidosis, correction of DKA, continued search for infective cause vs. equipment malfunction. Neuro - HX Meningioma, Frontal Lobe Dementia CAM ICU: NEGATIVE - has been following with neurologist in [place] for about 1 year regarding the above - no acute needs at this time- CT non con head without any note of edema or acute intracranial process to relate to n/v - is without any meningismus signs or fever, and without focal deficits/encephalopathy/or LOC- do not at this time see benefit in LP adding to clinical picture Cardiac - SIRS, Hypovolemia, - Both at this time likely related to DKA - is with MARION as well - Volume replete and follow clinically Respiratory - No acute needs GI - N/V - with normal billiary labs as well as history of choleycstectomy - No abdominal pain or radiological evidence of pancreatitis- Lipase elevation consistent with hypovolemic volume status - Treat underlying DKA and follow RENAL/LYTES - AGAP Metabolic Acidosis, Lactic Acidosis, MARION, Hyperkalemia, Hypermag, HyperCalcemia - AGAP Acidosis secondary to DKA- See ENDO belo - Lactic Acidosis is likely from Ketosis and lack of insulin- however continue to work up infectious cause - Multiple electrolyte derrangments secondary to MARION and DKA- replete volume - follow with insulin infusion, hypercalcemia mild and most consistent with hypovolemia - without ECG changes with hyperkalemia- should correct with insulin and correction of acidosis - UA negative will still send for culture- no evidence of obstruction on CT of a bdomen/Pelvis - MARION follow with volume repletion- unkown baseline - 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- urine without protien and trace blood - IUD in place - HX of IUD in place- denies any vaginal discharge- and is without suprapubic tenderness ENDO - DKA in known type I diabetic - Insulin infusion goal 100-150mg/dl decrease per hour - Replete intravascular volume with Normosol 115ml/hour - Follow and replete electrolytes as needed - Add Dextrose to fluid when Glucose @250mg/dl - Add K to fluid if needed - Consider HCO3 if needed to assist with GAP closure HEME - No acute needs ID - Leukocytosis, elevated PCT - SIRS-2 Q sofa-0 - Initial workup and physical exam is without infectious etiology or cause, is without lymphadenopathy to neck or cerivical chains, without abdominal pain or urinary complaints - Imaging of chest negative for opacity, respiratory biofire negative for viral - Blood cultures pending - UA negative will add urine culture - Change ABX from Zosyn to Rocephin- follow clinically LINES/IV ACCESS - PIV Continue use of these lines DVT PROPHYLAXIS - SCDS, Ambulation DISPO- ICU while on insulin infusion I have personally spent 50 minutes of critical care time in the direct management of this patient. This is a life/limb threatening event. This includes time spent evaluating patient, direct bedside care, chart review, placing orders, interpretation of diagnostic studies, discussion with consultants, patient, and family members, as well as other required patient management activities. This time is exclusive of all separately billable procedures, and separate from and in addition to any other critical care service time. Thank you for allowing us to participate in the care of this patient. Please refer to my attending physician's documentation for any further recommendations. History of Present Illness Reason for Consultation: DKA in type I diabetic Requesting Physician: Eduardo Etienne MD Attending Physician: Eduardo Etienne MD History of Present Illness 52 YOF with known history of DM I - uses Dexcom Pods system, Grave's Disease, Meningioma with frontal Love Dementia. Patient presents to the area today from [place] to visit sons at [employer]. She is accompanied by her who assisted with gathering information. The patient reports that this morning she started feeling not well with nausea and vomiting. This is not associated with any abdominal pain, fevers, diarrhea or urinary complaints. Her emesis is reported as light yellow. She has history of Cholecystectomy. Last meal was 02/15/23 at dinner. She had leftover pot roast with vegetables. reports noting her blood sugars increasing to "High" on the Dexcom system and thinks this stops reading at ~400mg/dl level. Reports attempting a few boluses of insulin without any response in her glucose levels. The patient tried resting at her family's place and go to dinner but had a milkshake with a couple of sips and had another bout of emesis. The patient has not had an episode of DKA prior to this. Denies any other signs or symptoms of infection to include dental/ENT, denies any new medications or steroids recently. In the EMD the patient had routine labs performed to include PCT, blood cultures, respiratory viral panel. She had CT scan of her head performed as well as CT of abdomen and pelvis performed. Labs returned notable for leukocytosis, elevated PCT, electrolyte disturbances, elevated glucose with HCO3 level of 10, lactate of 8.0 on arrival. She received 2.5 Liters of Crystalloid and was started on Insulin infusion. Patient also received dose of Zosyn IV. UA returned unremarkable for infectious etiologies as well. Patient will be admitted to ICU to follow electrolytes, PH levels and monitor response to insulin therapy. Continue to search for possible cause of infection vs. equipment malfunction. COVID: NEGATIVE CODE: FULL Consultations: NONE Allergies Allergy/AdvReac Type Severity Reaction Status Date / Time codeine Allergy Unknown Verified 02/15/23 23:39 Home Medications Medication Instructions Recorded Confirmed Type insulin lispro 100 unit/mL 0 sliding scale dose continuous 02/15/23 02/15/23 History subcutaneous solution (Humalog subcutaneous infusion DIRECTED U-100 Insulin) Patient History Medical History (Updated 02/16/23 @ 00:37 by SWETHA Howell) Diabetes mellitus type 1 Frontotemporal dementia Graves disease IUD (intrauterine device) in place Meningioma Tremor Surgical History (Updated 02/16/23 @ 00:28 by SWETHA Howell) History of cholecystectomy Social History Smoking Status: Never smoker Second Hand Exposure: No; Do You Dip or Chew Tobacco: No; Tobacco Cessation Education Requested by Patient: No Hx Alcohol Use: Yes Alcohol type: wine Hx Substance Use: No Preferred Language: Czech Communication Ability: Impaired Communication Ability Comment: hx frontal lobe dimentia Hod Carrier Required: No Beliefs That Will Affect Care: None Current Living Situation: Spouse Other Information That Helps Us Care for You: No Feels Safe at Home: Yes Safety Concerns: Feels Safe At This Time Assistive Devices: None Review of Systems Review of Systems: REVIEW OF SYSTEMS: Obtained from mostly for clarification of dates and symptoms Constitutional: No fever, sweats or chills Eyes: No diplopia, no worsening or blurred vision ENT: normal hearing, no trouble swallowing Respiratory: No cough, sputum, dyspnea at rest or on exertion Cardiovascular: No chest pain, tightness or palpitations Abdomen: (+) nausea, vomiting, No pain, diarrhea or constipation Musculoskeletal: No joint pain, calf pain, swelling Neurologic: (+) dementia, short term memory difficulty, No weakness, numbness/tingling, or balance problems Psychiatric: No anxiety or depression Skin: No rash or itch Physical Exam Physical Exam: PHYSICAL EXAM: General: awake, alert, no apparent distress Head: Normocephalic, atraumatic ENT: PERRLA, EOMI, no pharyngeal exudate, mucous membranes dry Neuro: AAO x 3, speech clear and appropriate, strength intact bilaterally 5/5, sensation intact and equal all extremities and dermatomes, no pronator drift Chest: equal rise and fall of the chest, no accessory muscle use, no heaves or thrills, Clear to auscultation, on room air, Cardiac: Regular rate and rhythm, telemetry reviewed- sinus tachycardia without ectopy, skin warm dry, cap refill <3 seconds, peripheral pulses +2 no JVD, no murmur, no edema GI: NABS x 4 quadrants, soft, nontender to palpation, no rebound, guarding or tenderness : Spontaneously voiding, no pain, no CVA tenderness, Extremities: Normal inspection, no peripheral edema or erythema, calfs nontender to palpation Psych: Normal mood and affect Skin: no rash or erythema Results & Data Results & Data Vital Signs (Past 12 Hours) Vital Signs Temp Pulse Resp BP Pulse Ox O2 Del Method 02/15/23 23:30 126 H 20 100 02/15/23 23:30 131/71 02/15/23 23:20 124 H 21 02/15/23 23:17 121 H 22 02/15/23 23:00 124 H 18 02/15/23 22:50 118 H 22 02/15/23 22:40 121 H 18 02/15/23 22:30 116 H 19 02/15/23 22:30 135/72 02/15/23 22:20 117 H 13 02/15/23 22:23 114 H 02/15/23 22:17 58 L 17 100 02/15/23 22:07 114 H 17 99 Room Air 02/15/23 21:44 36.6 C 79 18 110/71 99 Room Air Laboratory Results Abnormal lab results 02/15/23 02/15/23 02/15/23 Range/Units 22:00 22:00 22:00 WBC 24.45 H (4.8-10.8) K/ul Hct 47.5 H (37.0-47.0) % Plt Count 527 H (130-400) K/uL Neut # (Auto) 20.16 H (1.40-6.50) K/uL [place] # (Auto) 1.62 H (0.11-0.59) K/uL Immature Gran # (Auto) 0.29 H (0.01-0.20) K/uL POC pH (7.35-7.45) POC pCO2 (35-46) mmHg POC pO2 (80-95) mmHg POC HCO3 (19-24) jose david/L POC Base Excess (-9-1.8) jose david/L POC ABG O2 Sat (90-95) % VBG pH (7.36-7.41) VBG pCO2 (38-50) mmHg POC Sodium (135-144) mmol/L Sodium 132 L (136-145) mmol/L POC Potassium (3.3-5.0) mmol/L Potassium 6.0 H (3.5-5.1) mmol/L Chloride 95 L (98-107) mmol/L Carbon Dioxide 10 L (21-32) mmol/L POC Total CO2 (24-31) mmol/L Anion Gap 27 H (3-11) POC BUN (7-18) mg/dl BUN 35 H (6-23) mg/dl Creatinine 1.45 H (0.6-1.2) mg/dl BUN/Creatinine Ratio 24.1 H (10-20) Glucose 664 H* (70-99(Fasting)) mg/dl POC Glucose (70-99) mg/dl POC Glucose (other) (70-99) mg/dl Lactate 8.0 H* (0.4-2.0) mmol/L Calcium 10.5 H (8.6-10.3) mg/dl Magnesium 2.6 H (1.7-2.4) mg/dl Total Protein 8.6 H (6.0-8.3) gm/dl Albumin 5.3 H (3.4-5.0) gm/dl Procalcitonin (0-0.5) ng/ml Urine Glucose (UA) (Negative) Urine Ketones (Negative) Urine Blood (Negative) U Epithel Cells (Auto) (0-5) /lpf 02/15/23 02/15/23 02/15/23 Range/Units 22:00 22:44 22:49 WBC (4.8-10.8) K/ul Hct (37.0-47.0) % Plt Count (130-400) K/uL Neut # (Auto) (1.40-6.50) K/uL [place] # (Auto) (0.11-0.59) K/uL Immature Gran # (Auto) (0.01-0.20) K/uL POC pH (7.35-7.45) POC pCO2 (35-46) mmHg POC pO2 (80-95) mmHg POC HCO3 (19-24) jose david/L POC Base Excess (-9-1.8) jose david/L POC ABG O2 Sat (90-95) % VBG pH 7.03 L (7.36-7.41) VBG pCO2 36 L (38-50) mmHg POC Sodium 134 L (135-144) mmol/L Sodium (136-145) mmol/L POC Potassium 6.0 H (3.3-5.0) mmol/L Potassium (3.5-5.1) mmol/L Chloride (98-107) mmol/L Carbon Dioxide (21-32) mmol/L POC Total CO2 11 L (24-31) mmol/L Anion Gap (3-11) POC BUN 34 H (7-18) mg/dl BUN (6-23) mg/dl Creatinine (0.6-1.2) mg/dl BUN/Creatinine Ratio (10-20) Glucose (70-99(Fasting)) mg/dl POC Glucose (70-99) mg/dl POC Glucose (other) 657 H* (70-99) mg/dl Lactate (0.4-2.0) mmol/L Calcium (8.6-10.3) mg/dl Magnesium (1.7-2.4) mg/dl Total Protein (6.0-8.3) gm/dl Albumin (3.4-5.0) gm/dl Procalcitonin 0.98 H (0-0.5) ng/ml Urine Glucose (UA) (Negative) Urine Ketones (Negative) Urine Blood (Negative) U Epithel Cells (Auto) (0-5) /lpf 02/15/23 02/16/23 02/16/23 Range/Units 23:03 00:17 00:21 WBC (4.8-10.8) K/ul Hct (37.0-47.0) % Plt Count (130-400) K/uL Neut # (Auto) (1.40-6.50) K/uL [place] # (Auto) (0.11-0.59) K/uL Immature Gran # (Auto) (0.01-0.20) K/uL POC pH 7.18 L* (7.35-7.45) POC pCO2 23 L (35-46) mmHg POC pO2 111 H (80-95) mmHg POC HCO3 9 L (19-24) jose david/L POC Base Excess -20.0 L (-9-1.8) jose david/L POC ABG O2 Sat 97.0 H (90-95) % VBG pH (7.36-7.41) VBG pCO2 (38-50) mmHg POC Sodium 134 L (135-144) mmol/L Sodium (136-145) mmol/L POC Potassium 5.4 H (3.3-5.0) mmol/L Potassium (3.5-5.1) mmol/L Chloride (98-107) mmol/L Carbon Dioxide (21-32) mmol/L POC Total CO2 9 L* (24-31) mmol/L Anion Gap (3-11) POC BUN (7-18) mg/dl BUN (6-23) mg/dl Creatinine (0.6-1.2) mg/dl BUN/Creatinine Ratio (10-20) Glucose (70-99(Fasting)) mg/dl POC Glucose 517 H* (70-99) mg/dl POC Glucose (other) (70-99) mg/dl Lactate (0.4-2.0) mmol/L Calcium (8.6-10.3) mg/dl Magnesium (1.7-2.4) mg/dl Total Protein (6.0-8.3) gm/dl Albumin (3.4-5.0) gm/dl Procalcitonin (0-0.5) ng/ml Urine Glucose (UA) 3+ H (Negative) Urine Ketones 3+ H (Negative) Urine Blood Trace H (Negative) U Epithel Cells (Auto) >30 H (0-5) /lpf Diagnostic Findings Abdomen/Pelvis CT 02/15/23 21:54 Exam(s): CT ABDOMEN + PELVIS With Contrast IV EXAM: CT Abdomen and Pelvis With Intravenous Contrast CLINICAL HISTORY: Reason for exam: ams, n/v. TECHNIQUE: Axial computed tomography images of the abdomen and pelvis with intravenous contrast. CTDI is 38.02 mGy and DLP is 614.27 mGy-cm. Automated exposure control was utilized for the study. A dose lowering technique was utilized adhering to the principles of ALARA. CONTRAST: Patient received of IV contrast COMPARISON: No relevant prior studies available. FINDINGS: Lung bases: Unremarkable. No mass. No consolidation. ABDOMEN: Liver: Unremarkable. No mass. Gallbladder and bile ducts: Status post cholecystectomy. No ductal dilation. Pancreas: Unremarkable. No mass. No ductal dilation. Spleen: Unremarkable. No splenomegaly. Adrenals: Unremarkable. No mass. Kidneys and ureters: Unremarkable. No solid mass. No hydronephrosis. Stomach and bowel: Unremarkable. No obstruction. No mucosal thickening. PELVIS: Appendix: No findings to suggest acute appendicitis. Bladder: Significant distention of the urinary bladder. Reproductive: IUD in place. ABDOMEN and PELVIS: Intraperitoneal space: Unremarkable. No free air. No significant fluid collection. Bones/joints: No acute fracture. No dislocation. Soft tissues: Unremarkable. Vasculature: Unremarkable. No abdominal aortic aneurysm. Lymph nodes: Unremarkable. No enlarged lymph nodes. IMPRESSION: No acute findings in the abdomen or pelvis. Electronically signed by: Gio Novak MD 02/15/23 23:[address] 02/15/23 21:54 Exam(s): CT HEAD Without Contrast EXAM: CT Head Without Intravenous Contrast CLINICAL HISTORY: Reason for exam: ams, hx dementia. TECHNIQUE: Axial computed tomography images of the head/brain without intravenous contrast. CTDI is 38.02 mGy and DLP is 614.27 mGy-cm. Automated exposure control was utilized for the study. A dose lowering technique was utilized adhering to the principles of ALARA. COMPARISON: No relevant prior studies available. FINDINGS: Brain: Ossified focus adjacent to the left frontal lobe with underlying osseous remodeling (image 13 series 3), findings most likely reflect a meningioma. No hemorrhage. No significant white matter disease. Ventricles: Unremarkable. No ventriculomegaly. Bones/joints: Unremarkable. No acute fracture. Soft tissues: Unremarkable. Sinuses: Unremarkable as visualized. No acute sinusitis. Mastoid air cells: Unremarkable as visualized. No mastoid effusion. IMPRESSION: No acute intracranial pathology. Electronically signed by: Gio Novak MD 02/15/23 23:42 PM Medications Administered Home Medications insulin lispro 100 unit/mL subcutaneous solution (Humalog U-100 Insulin) 0 sliding scale dose continuous subcutaneous infusion DIRECTED 02/15/23 [History Confirmed 02/15/23] Active Medications Dextrose (Dextrose 50% 50 Ml Syringe) 25 - 50 ml IV UD PRN; Protocol PRN Reason: Hypoglycemia Protocol Stop: 03/17/23 22:55 Glucagon (Glucagon For Inj 1 Mg Vial) 1 mg SQ UD PRN; Protocol PRN Reason: Hypoglycemia Protocol Stop: 03/17/23 22:55 Glucose (Glucose 10 Tab/Tube) 4 - 8 tab PO UD PRN; Protocol PRN Reason: Hypoglycemia Treatment Stop: 03/17/23 22:55 Glucose (Glucose 40% Gel 15 Gm Tube) 15 - 30 gm PO UD PRN; Protocol PRN Reason: Hypoglycemia Protocol Stop: 03/17/23 22:55 Heparin Sodium (Porcine) (Heparin Sod 5,000 Unit/0.5 Ml Vial) 5,000 units SQ Q12 MILAD Stop: 03/18/23 08:59 Parenteral Electrolytes (Normosol-R) 1,000 mls @ 75 mls/hr IV .[id number] MILAD Stop: 03/17/23 22:59 Last Admin: 02/16/23 00:21 Dose: 75 mls/hr Insulin Human Regular 250 (units/ Sodium Chloride) 250 mls @ 4.7 mls/hr IV .Q24H MILAD; Protocol Stop: 03/17/23 22:59 Last Titration: 02/16/23 00:22 Dose: 5.6 units/hr, 5.6 mls/hr Insulin Aspart (Insulin Aspart Per Unit Charge) 0 units SC ACHS MILAD Stop: 03/18/23 07:29 Miscellaneous (Carbohydrates For Hypoglycemia ) 15 - 30 gm PO UD PRN PRN Reason: Hypoglycemia Protocol Stop: 03/17/23 22:55 Miscellaneous Information (Pharmacy Glycemic Mgmt Consult) 1 each N/A UD PRN PRN Reason: Consult Stop: 03/17/23 22:55 Parenteral Electrolytes (Normosol-R) 1,000 mls @ 75 mls/hr IV .[id number] MILAD Stop: 03/17/23 22:59 Last Admin: 02/16/23 00:21 Dose: 75 mls/hr Documented By: ANGELIA Insulin Human Regular 250 (units/ Sodium Chloride) 250 mls @ 4.7 mls/hr IV .Q24H MILAD; Protocol Stop: 03/17/23 22:59 Last Titration: 02/16/23 00:22 Dose: 5.6 units/hr, 5.6 mls/hr Documented By: ANGELIA Co-signed By: BRIAN Admin: 02/15/23 23:25 Dose: 4.7 units/hr, 4.7 mls/hr Documented By: ANGELIA Co-signed By: MED Discontinued Medications Sodium Chloride (Nss 1000ml) 1,000 mls @ 999 mls/hr IV .Q1H1M MILAD Stop: 02/15/23 23:00 Last Infusion: 02/15/23 23:11 Dose: 0 mls/hr Documented By: Admin: 02/15/23 22:10 Dose: 999 mls/hr Documented By: ANGELIA Sodium Chloride (Nss 1000ml) 500 mls @ 999 mls/hr IV .Q31M MILAD Stop: 02/15/23 22:30 Last Infusion: 02/15/23 22:50 Dose: 0 mls/hr Documented By: Admin: 02/15/23 22:17 Dose: 999 mls/hr Documented By: ANGELIA Sodium Chloride (Nss 1000ml) 1,000 mls @ 999 mls/hr IV .Q1H1M ONE Stop: 02/15/23 23:37 Last Infusion: 02/16/23 00:10 Dose: 0 mls/hr Documented By: Admin: 02/15/23 23:07 Dose: 999 mls/hr Documented By: ANGELIA Piperacillin Sod/Tazobactam Sod (Zosyn) 4.5 gm in 120 mls @ 200 mls/hr IV NOW STA Stop: 02/15/23 23:08 Last Infusion: 02/15/23 23:39 Dose: 0 mls/hr Documented By: Admin: 02/15/23 23:01 Dose: 200 mls/hr Documented By: ANGELIA Insulin Human Regular (Novolin-R Insulin Per Unit Charge) 10 units IV NOW STA Stop: 02/15/23 22:57 Last Admin: 02/15/23 23:24 Dose: 10 units Documented By: ANGELIA Co-signed By: MED Ioversol (Optiray 350 100ml) 85 ml IV ONCE ONE Stop: 02/15/23 23:10 Last Admin: 02/15/23 23:11 Dose: 81 ml Documented By: RACHEL Miscellaneous (Stat Iv Infusion Titration Per Protocol) 1 each N/A NOW STA Stop: 02/15/23 22:57 Last Admin: 02/15/23 23:33 Dose: Not Given Documented By: ANGELIA Ondansetron HCl (Ondansetron Inj 2 Mg/Ml 2 Ml Vial) 4 mg IV NOW STA Stop: 02/15/23 21:55 Last Admin: 02/15/23 22:10 Dose: 4 mg Documented By: ANGELIA ECG Additional Comments: Sinus tachycardia Right atrial enlargement Marked ST abnormality, possible inferior subendocardial injury Abnormal ECG No previous ECGs available Coding Level of Care Code 87212 CRITICAL CARE 1ST 30-74M Diagnoses Leukocytosis D72.829 DKA (diabetic ketoacidosis) E11.10 Meningioma D32.9 Frontotemporal dementia G31.09; F02.80 Electrolyte abnormality E87.8 Metabolic acidosis E87.20 SIRS (systemic inflammatory response syndrome) R65.10
[2023-02-16 00:30] LABS: iSTAT Arterial Blood Gas HCO3 9 meg/L (19-24); iSTAT Arterial Blood Gas pCO2 23 mmHg (35-46); iSTAT Arterial Blood Gas pH 7.18 (7.35-7.45); iSTAT Arterial Blood Gas pO2 111 mmHg (80-95); iSTAT Carbon Dioxide 9 mmol/L (24-31); iSTAT Hematocrit 41 % (37-47); iSTAT Hemoglobin 13.9 g/dl (12.0-16.0); iSTAT Potassium 5.4 mmol/L (3.3-5.0); iSTAT Sodium 134 mmol/L (135-144)
[2023-02-16] MEDS ORDERED: PLASMA-LYTE A 1,000 ML IV SCH (00:52)
[2023-02-16] MEDS ORDERED: PENDING D5 1/2NS+20mEq KCL IVF SCH (01:00)
[2023-02-16] MEDS ORDERED: cefTRIAXone SODIUM 1,000 MG in DEXTROSE 5% AD-VAN 50 ML IV SCH (02:00)
[2023-02-16] MEDS ORDERED: D5W AND 1/2NSS 1,000 ML IV SCH (03:30)
[2023-02-16 04:05] LABS: BUN Creatinine Ratio 23.1 (10-20); Calcium 9.6 mg/dl (8.6-10.3); Creatinine Clr Calc Pharmacy 37.5 ml/min; Est GFR (African American) 54.6 ml/min; Est GFR (Non-African American) 47.1 ml/min; Magnesium 2.4 mg/dl (1.7-2.4); Phosphorus 2.3 mg/dl (2.5-4.9); Potassium 4.2 mmol/L (3.5-5.1)
[2023-02-16] MEDS ORDERED: INSULIN ASPART PER UNIT CHARGE SC SCH (07:30)
[2023-02-16] MEDS ORDERED: ICU Protocol for HYPERglycemia SCH (07:30)
[2023-02-16 07:37] LABS: BUN Creatinine Ratio 26.2 (10-20); Calcium 9.5 mg/dl (8.6-10.3); Creatinine Clr Calc Pharmacy 47.3 ml/min; Est GFR (African American) 72.4 ml/min; Est GFR (Non-African American) 62.5 ml/min; Magnesium 2.2 mg/dl (1.7-2.4); Potassium 3.8 mmol/L (3.5-5.1)
[2023-02-16 08:03] LABS: Basophils # (auto) 0.03 K/uL (0-0.2); Basophils % (auto) 0.2 %; Eosinophils # (auto) 0.02 K/uL (0-0.50); Eosinophils % (auto) 0.1 %; Hematocrit (blood only) 37.2 % (37.0-47.0); Hemoglobin 12.9 g/dl (12.0-16.0); Immature Granulocytes % (auto) 0.6 %; Lymphocytes # (auto) 2.12 K/uL (1.2-3.4); Lymphocytes % (auto) 12.4 %; Mean Corpuscular Hemoglobin 29.2 pg (25.0-34.0); Mean Corpuscular Hgb Conc 34.7 g/dL (32.0-36.0); Mean Corpuscular Volume 84.2 fL (80.0-100.0); Mean Platelet Volume 9.7 fL (9.4-12.4); Monocytes # (auto) 1.82 K/uL (0.11-0.59); Monocytes % (auto) 10.6 %; Neutrophils # (auto) 13.05 K/uL (1.40-6.50); Neutrophils % (auto) 76.1 %; Platelet Count 426 K/uL (130-400); RDW Coefficient of Variation 12.3 % (11.5-14.5); RDW Standard Deviation 37.5 fL (36.4-46.3); Red Blood Count 4.42 M/uL (4.20-5.40); White Blood Count 17.14 K/ul (4.8-10.8)
[2023-02-16] MEDS: INSULIN ASPART PER UNIT CHARGE SC SCH ×2 (08:14→10:25)
[2023-02-16] MEDS: PENDING 1/2NSS+20mEq KCL IVF SCH ×2 (08:15→09:55)
--- NOTE | 2023-02-16 08:26 | XRay Report ---
XR chest 1V portable CLINICAL HISTORY: Sepsis TECHNIQUE: Single frontal radiograph of the chest was obtained. Comparison: None available at the time of this dictation. FINDINGS: No lines and tubes are seen. The cardiomediastinal silhouette is normal. The lungs are clear. Radiode nsity projecting over the right lower chest is favored to represent a nipple shadow. No evidence of p leural effusion or pneumothorax. IMPRESSION: No acute abnormalities and in particular no radiographic evidence of pneumonia. ACT 112: Negative or not required by law. Electronically signed by: Antwan Hinds M.D. 02/16/2023 8:24 AM
--- NOTE | 2023-02-16 08:42 | Electrocardiogram Report ---
Test Reason : Blood Pressure : / mmHG Vent. Rate : 113 BPM Atrial Rate : 113 BPM P-R Int : 130 ms QRS Dur : 100 ms QT Int : 368 ms P-R-T Axes : 086 076 066 degrees QTc Int : 504 ms Sinus tachycardia Right atrial enlargement Nonspecific ST abnormality Inferior leads Abnormal ECG No previous ECGs available Confirmed by Mateo Steele ([id number]) on 02/16/2023 8:41:57 AM Referred By: REFERRED SELF Confirmed By:Mateo Steele
[2023-02-16] MEDS ORDERED: HEPARIN SOD 5,000 UNIT/0.5 ML VIAL SQ SCH (09:00)
[2023-02-16] MEDS ORDERED: INSULIN ASPART 100 UNITS/ML VIAL SC PRN (10:00)
--- NOTE | 2023-02-16 10:41 | Hospitalist Progress Note ---
Date of Service February 16, 2023 Assessment & Plan (1) DKA (diabetic ketoacidosis): Plan: 52yo Female with PMH DM1 and newly diagnosed frontotemporal dementia here for DKA. Diabetic Ketoacidosis/[id number] -BSG elevated since yesterday per monitor, ongoing tremors polydipsia nausea -patient using insulin pods, current one expires today, change every 2 days -on admission BSG 664 lactate 8 VBG pH 7.03; creatinine 1.45, K+ 6, bicarb 10 -S/p 2.5L NSS in ED, 10U insulin, IV Zosyn x1 dose in the ED. -CT A/P no acute findings * Admitted to ICU for hyperglycemia management per protocol * Anticipate transition back to home insulin pump this morning. Hyperkalemiaresolved -K+ of 6 on admission. S/p 2.5L NSS, 10U insulin. * Electrolyte management per ICU protocol. Hypermagnesemia resolved -Mg 2.6 on admission * Electrolyte management per ICU protocol. Hyponatremia resolved -Na 132. Likely secondary to hyperglycemia. Corrected Na 141. * Fluid, electrolyte management per ICU protocol. AKIimproving -Creat 1.45, BUN 34 on admission. Already downtrending. -continue fluids Tachycardia -2/2 DKA * Trend vitals Leukocytosis Improving -WBC elevated 24.45, procal 0.98, no fever noted -S/p 1 dose zosyn in ED -Bcx pending -continue to monitor Frontotemporal dementiachronic -newly diagnosed; noted word finding difficulties, difficulty coordinating limbs on right side, difficulty moving gaze to the right -meningioma present on left frontal area per CT FENa: NPO Code Status: Full DVT PPX: heparin Dispo: ICU (2) Diabetes mellitus type 1: (3) Frontotemporal dementia: (4) Meningioma: (5) Tremor: (6) Hyperglycemia: Admission and Anticipated Discharge Date Admission Date: February 15, 2023 Supervising Physician Co-Signing Physician Notes I personally examined the patient and verified all bucio points of history and exam, discussed case, and agree with decision making with Dr Coleman Eating well feeling good and wanting to go home by the time I see her. Discussion with patient and in regards to ongoing management. They expressed good understanding. Vitals noted, in general she is awake and alert pleasant no distress. HEENT normocephalic atraumatic mucous membranes moist. Breathing unlabored no accessory muscle use good effort. Skin shows no rashes no pallor or icterus. Neuro without focal deficits. DKAdifficult to tell if nausea and vomiting from a viral gastroenteritis caused it, or if the marked hyperglycemia led to the nausea and vomitingeither way she is doing better, feeling better, her gap is closed, her MARION has resolved, and she does appear safe/stable for home. Continue insulin pump. Given that they are not sure that the Dexcom was reliable, gave a prescription for fingerstick meter/supplies/etc.. Leukocytosismore than likely demargination from vomiting and contraction/hemoconcentration from low volumeat the same time cannot definitively rule out bacterial infection. Discussed with patient and that if she was staying in the hospital, serial exams/labs/etc. would likely yield that we do not have a clear bacterial infection, but while this situation is still "work in progress" and they have a strong desire to go home, it is very reasonable to let them go home but will treat with an empiric course of cefdinir, replacing the ceftriaxone she was on here. Safe/stable for home, otherwise as above. Subjective On arrival, patient is awake in bed with her . She reports significant improvement. She denies headache, shortness of breath, chest pain, abdominal pain, or nausea. She is yet to have bowel movement but had 1 less than 24 hours ago. She has been able to ambulate to and from the bathroom on her own without difficulty. She is eager to go home today if possible. Review of Systems Review of Systems: All systems reviewed & are unremarkable except as noted in HPI & below Physical Exam Physical Exam: General: No acute distress HEENT: PERRLA. Normal conjunctiva, anicteric sclera. Oropharynx normal. Respiratory: Normal respiratory effort, CTABL. Cardiovascular: RRR without murmurs, gallops, or rubs. No edema. GI: Soft abdomen with normal bowel sounds heard on auscultation. Nontender x4 quadrants Neuro: Alert and oriented x3. Results & Data Results & Data Vital Signs (Past 12 Hours) Vital Signs Temp Pulse Pulse Resp BP BP Pulse Ox 02/16/23 08:00 123 H 02/16/23 07:00 124 H 18 98 02/16/23 07:00 126/86 02/16/23 07:36 37.5 C 02/16/23 05:00 105 H 17 110/61 02/16/23 04:00 100 H 16 104/62 02/16/23 03:00 109 H 19 122/70 02/16/23 02:01 114 H 19 98/59 L 02/16/23 01:25 123 H 21 145/82 H 02/16/23 00:44 130 H 21 126/84 99 02/16/23 00:52 37.5 C 122 H 20 126/89 100 02/15/23 23:30 126 H 20 100 02/15/23 23:30 131/71 02/15/23 23:20 124 H 21 02/15/23 23:17 121 H 22 02/15/23 23:00 124 H 18 02/15/23 22:50 118 H 22 02/15/23 22:40 121 H 18 O2 Del Method 02/16/23 08:00 02/16/23 07:00 Room Air 02/16/23 07:00 02/16/23 07:36 02/16/23 05:00 02/16/23 04:00 02/16/23 03:00 02/16/23 02:01 02/16/23 01:25 02/16/23 00:44 02/16/23 00:52 Room Air 02/15/23 23:30 02/15/23 23:30 02/15/23 23:20 02/15/23 23:17 02/15/23 23:00 02/15/23 22:50 02/15/23 22:40 Resident Activity Tracking Resident Involvement: Resident Care Provided Care Provided: Adult Hospital Medicine
[2023-02-16] MEDS ORDERED: INSULIN, Rapid-Acting PUMP SCH (11:30)
[2023-02-16 13:22] LABS: BUN Creatinine Ratio 29.2 (10-20); Calcium 9.8 mg/dl (8.6-10.3); Creatinine Clr Calc Pharmacy 54.7 ml/min; Est GFR (African American) 86.4 ml/min; Est GFR (Non-African American) 74.5 ml/min; Potassium 4.2 mmol/L (3.5-5.1)
--- NOTE | 2023-02-16 16:37 | Billing Data ---
Date of Service February 16, 2023 Coding Level of Care Code 56025 IN/OBS DISCH 30 MIN/LESS
--- NOTE | 2023-02-16 21:49 | Billing Data ---
Date of Service February 16, 2023 Coding Level of Care Code 96831 CRITICAL CARE
== END 2023-02-16 15:12 | disposition home or self-care (01) | DRG 638 ==
LOC: ED 21:40 → SUATTDRO 23:35 → 1E 23:35